=== PATIENT | male | born 1965 | race African-American/Black ===

== ENCOUNTER → 2017-04-03 | Outpatient (CLI) | payer MEDICAID ==
[2017-04-03 15:05] LABS: Hepatitis B Surface Antibody Positive
== END | disposition home or self-care (01) ==
LOC: LAB 14:08
PROVIDERS: ATTEND Physician Assistant
DX: Z20.2 Contact with and (suspected) exposure to infections with a predominantly sexual mode of transmission (principal)
CPT/HCPCS: 36415; 86703; 86706; 86803; 87340; 87591